=== PATIENT | male | born 1980 | race Caucasian/White ===

== ENCOUNTER 2024-03-15 14:59 | Emergency (ER) | payer SELFPAY ==
[2024-03-15] MEDS: Benzonatate 100 MG Cap PO ONE (15:35)
[2024-03-15] MEDS: Albuterol 8 GM Inhaler INH STA (16:46)
== END 2024-03-15 16:49 | disposition home or self-care (01) ==
LOC: MW.ED 14:59
DX: J18.9 Pneumonia, unspecified organism (principal); I10 Essential (primary) hypertension; Z79.899 Other long term (current) drug therapy; Z75.8 Other problems related to medical facilities and other health care
CPT/HCPCS: 71046; 99284; A9270